=== PATIENT | male | born 2000 | race Caucasian/White ===

== ENCOUNTER 2021-12-26 13:21 | Emergency (ER) | payer OTHER ==
[2021-12-26 13:35] VITALS: BP 127/79; PULSE 83; TEMP 97.6; BMI 27.1
== END 2021-12-26 14:50 | disposition home or self-care (01) ==
LOC: JER 13:21
DX: R79.9 Abnormal finding of blood chemistry, unspecified (principal)
CPT/HCPCS: 99283-25